=== PATIENT | female | born 1995 | race Caucasian/White ===

== ENCOUNTER → 2016-03-24 11:08 | Day surgery (SDC) | payer OTHER ==
[~2016-03-24 11:08] MED LIST: Buffered Lidocaine 1% SYR 3ML* 3 ML/SYR SYRINGE INTRADERM ONE; DiMENhydriNATE IV* 50 MG/ML VIAL IV PUSH PRN; Gentamicin ADULT (*) 160 MG in NS 0.9% 100 ML* 100 ML IVPB ONE; Lidocaine 2% MPF* 2 ML VIAL ONE; Propofol* 10 MG/ML 20 ML BTL IV PUSH ONE; fentaNYL* 50 MCG/ML 2 ML VIAL (100 MCG VIAL) ONE; oxyCODONE/Acetamin 5/325 MG* TAB ONE; oxyCODONE/Acetamin 5/325 MG* TAB PO PRN
--- NOTE | 2016-03-24 11:41 | RAD ---
HISTORY: Lithotripsy COMPARISONS: March 11, 2016 VIEWS: Frontal views of the abdomen. FINDINGS: BOWEL: There is a nonspecific bowel gas pattern, with nondilated small bowel gas noted. CALCULI: A left ureteral stent is noted. The left renal calculus noted on previous examinations is likely present but is partially obscured but a ureteral stent. BONES AND SOFT TISSUES: There are no osseous abnormalities. OTHER FINDINGS: The lung bases are clear. There is no subphrenic gas. IMPRESSION: STATUS POST LEFT URETERAL STENT PLACEMENT
[2016-03-24 12:06] LABS: Manual Entry Verification DOM0004; UR Preg Internal Control QC Line Present
[2016-03-24] MEDS: fentaNYL* 50 MCG/ML 2 ML VIAL (100 MCG VIAL) IV PRN ×3 (16:10→16:43)
[2016-03-24 17:43] VITALS: BP 118/69
--- NOTE | 2016-03-25 15:50 | OP ---
OPERATIVE SUMMARY: DATE OF OPERATION: 03/24/16 - SDS DATE OF : [birth year] SURGEON: Roni Stallings MD. ANESTHESIOLOGIST: Dr. Ortiz. ANESTHESIA: General. PRE-OP DIAGNOSIS: Left renal calculus. POST-OP DIAGNOSIS: Left renal calculus. OPERATIVE PROCEDURE: 1. Shockwave lithotripsy of left renal calculus. 2. Cystoscopy and left stent removal. INDICATIONS: Ms. Claudia Pederson is a 20-year-old lady, who had undergone urgent stent insertion for left flank pain secondary to a calculus at the left ureteropelvic junction. She is now being brought in for lithotripsy. I have discussed the procedure in detail including possible risks of bleeding, infection, and incomplete fragmentation and she wishes to proceed as planned. POSTOPERATIVE CONDITION: Stable. COMPLICATIONS: None. DESCRIPTION OF PROCEDURE: After induction of general anesthesia, the patient was placed on the lithotripsy table in the supine position. The calculus, which was in the proximal loop of the left stent, was localized under fluoroscopy. Shockwave lithotripsy was commenced at a rate of 90 shocks per minute. After the initial 300 shocks, there was a brief pause in lithotripsy for several minutes in an effort to minimize any potential trauma to the kidney. Lithotripsy was then resumed and a total of 1000 shocks were administered with good fragmentation observed. Next, the patient was placed in the dorsal lithotomy position and cystoscopy was performed. The stent was seen exiting from the left ureter and was removed intact without difficulty. The bladder was emptied. The patient tolerated the procedure satisfactorily and was transferred back to the recovery area in stable condition. [id number] #: [id number] [id number]
== END | disposition home or self-care (01) ==
LOC: OR 11:08
PROVIDERS: ATTEND Urology
DX: N20.0 Calculus of kidney (principal); F17.210 Nicotine dependence, cigarettes, uncomplicated
CPT/HCPCS: 74000; 81025; A9270-GY; J1580; J2704; J3010

== ENCOUNTER 2017-10-22 15:06 | Emergency (ER) | payer OTHER ==
[2017-10-22 16:12] VITALS: BP 113/62
--- NOTE | 2017-10-22 16:18 | UC ---
Skin Complaint HPI - HPI Summary HPI Summary: C/O itchy bumps on both feet over the last several days. ? bug bites. - History of Current Complaint Chief Complaint: UCSkin Time Seen by Provider: 10/22/17 16:12 Stated Complaint: INSECT BITES (LEGS) Hx Obtained From: Patient Hx Last Menstrual Period: 09/28/17 ?: No Onset/Duration: Sudden Onset, Lasting Days - 2, Still Present Skin Exposure Onset/Duration: Days Ago - 3 Onset Severity: Mild Current Severity: Moderate Pain Intensity: 0 Location: Foot (Right), Foot (Left) Character: Pruritus, Redness Aggravating Factor(s): Nothing Alleviating Factor(s): OTC Creams/Salves Associated Signs & Symptoms: Positive: Rash. Negative: Diaphoresis, Weakness, Fever, Chills Related History: Insect Bite/Sting - Allergy/Home Medications Allergies/Adverse Reactions: Allergies Allergy/AdvReac Type Severity Reaction Status Date / Time amoxicillin Allergy Intermediate See Comment Verified 10/22/17 16:08 Penicillins Allergy Intermediate See Comment Verified 10/22/17 16:08 Review of Systems Skin: Rash Is Patient Immunocompromised?: No All Other Systems Reviewed And Are Negative: Yes PMH/Surg Hx/FS Hx/Imm Hx - Surgical History Surgical History: None - Family History Known Family History: Positive: Diabetes, Other - Mother Hx ovarian cysts - Social History Occupation: Employed Full-time Lives: With Family Alcohol Use: Occasionally Substance Use Type: None Smoking Status (MU): Former Smoker Type: Cigarettes Amount Used/How Often: less than 1/2 ppd Have You Smoked in the Last Year: Yes When Did the Patient Quit Smoking/Using Tobacco: MAR 2017 - Immunization History Most Recent Influenza Vaccination: 12/03/13 Most Recent Tetanus Shot: 12/27/13 Most Recent Pneumonia Vaccination: none Physical Exam Triage Information Reviewed: Yes Appearance: Well-Appearing, No Pain Distress, Well-Nourished Vital Signs: Initial Vital Signs Temp 99.1 F 10/22/17 16:09 Pulse 94 10/22/17 16:09 Resp 16 10/22/17 16:09 BP 113/62 10/22/17 16:09 Pulse Ox 100 10/22/17 16:09 Vital Signs Reviewed: Yes Eyes: Positive: Conjunctiva Clear Neck exam: Normal Respiratory Exam: Normal Cardiovascular Exam: Normal Musculoskeletal Exam: Normal Neurological Exam: Normal Psychological Exam: Normal Skin: Positive: rashes - papular rash on the feet and a couple of spots over the left knee Course/Dx - Differential Diagnoses - Skin Complaint Differential Diagnoses: Allergic Reaction, Cellulitis, Contact Dermatitis, Viral Exanthem - Diagnoses Provider Diagnoses: Insect bites bilateral lower legs. Discharge - Sign-Out/Discharge Documenting (check all that apply): Patient Departure - Discharge Plan Condition: Stable Disposition: HOME Prescriptions: Betamethasone Dip 0.05% ON(NF) [Betamethasone Dipr 0.05% OINT(NF)] 1 applic TOPICAL BID #30 gm Patient Education Materials: Insect Bite or Sting (ED), Betamethasone Dipropionate, Augmented (On the skin) Referrals: Lilliana Noble NP [Primary Care Provider] - - Billing Disposition and Condition Condition: STABLE Disposition: Home
== END 2017-10-22 16:33 | disposition home or self-care (01) ==
LOC: UCCORT 15:06
DX: S80.862A Insect bite (nonvenomous), left lower leg, initial encounter (principal); S80.861A Insect bite (nonvenomous), right lower leg, initial encounter; W57.XXXA Bitten or stung by nonvenomous insect and other nonvenomous arthropods, initial encounter; Y93.9 Activity, unspecified; Y92.9 Unspecified place or not applicable; Z88.0 Allergy status to penicillin; Z87.891 Personal history of nicotine dependence
CPT/HCPCS: 99212; G0463

== ENCOUNTER 2018-01-09 08:45 | Emergency (ER) | payer OTHER ==
--- NOTE | 2018-01-12 19:10 | UC ---
Discharge - Sign-Out/Discharge Documenting (check all that apply): Post-Discharge Follow Up All imaging exams completed and their final reports reviewed: No Studies - Discharge Plan Disposition: LEFT WITHOUT BEING SEEN Referrals: Lilliana Noble NP [Primary Care Provider] - - Billing Disposition and Condition Disposition: Left Without Being Seen
== END 2018-01-09 08:58 | disposition left against medical advice (07) ==
LOC: UCCORT 08:45
DX: J02.9 Acute pharyngitis, unspecified (principal); R05 Cough; Z53.21 Procedure and treatment not carried out due to patient leaving prior to being seen by health care provider